=== PATIENT | female | born 2000 | race Caucasian/White ===

== ENCOUNTER 2024-08-24 22:49 | Emergency (ER) | payer OTHER ==
[~2024-08-24] VITALS: Ht 162.6 cm; Wt 115.6 kg
[2024-08-25] MEDS ORDERED: METF-838 (03:14)
[2024-08-25] MEDS ORDERED: VITA100093 (03:14)
[2024-08-25] MEDS ORDERED: FERR325T19 (03:14)
[2024-08-25] MEDS ORDERED: CEPH500T PO (09:54)
[2024-08-25] MEDS: CEPHALEXIN 500 MG CAP PO ONE (09:58)
[2024-08-25 10:06] VITALS: BP 123/71; TEMP 97.9; O2SAT 97
== END 2024-08-25 10:08 | disposition home or self-care (01) ==
LOC: M ED 08-25 02:53
DX: L02.415 Cutaneous abscess of right lower limb (principal); E11.9 Type 2 diabetes mellitus without complications; E55.9 Vitamin D deficiency, unspecified; Z79.2 Long term (current) use of antibiotics; Z79.899 Other long term (current) drug therapy; Z79.84 Long term (current) use of oral hypoglycemic drugs

== ENCOUNTER → 2024-09-04 | Outpatient (CLI) | payer OTHER ==
[~2024-09-04] MED LIST: CEPH500T PO; FERR325T19; METF-838; VITA100093
== END ==
LOC: M LAB 11:00
PROVIDERS: ATTEND General Practice
DX: Z33.1 Pregnant state, incidental (principal)

== ENCOUNTER → 2024-09-06 | Outpatient (CLI) | payer OTHER | LOC: M LAB 14:04 | PROVIDERS: ATTEND General Practice | DX: Z33.1 Pregnant state, incidental (principal) ==

== ENCOUNTER 2024-09-30 12:32 | Emergency (ER) | payer OTHER ==
[~2024-09-30] VITALS: Ht 162.6 cm; Wt 113.6 kg
[2024-09-30 14:41] LABS: BASO # 0.1 10^3/uL (0.0-0.2); BASO % 0.7 % (0.0-1.0); EOS # 0.3 10^3/uL (0.0-0.5); EOS % 2.7 % (0.0-3.0); HEMATOCRIT 37.3 % (36.0-47.0); HEMOGLOBIN 11.9 g/dl (12.0-15.5); LYMPH # 4.1 10^3/uL (1.5-5.0); LYMPH % 32.7 % (24.0-44.0); MEAN CORPUSCULAR HEMOGLOBIN 26.6 pg (27.0-33.0); MEAN CORPUSCULAR HGB CONC 31.9 g/dl (32.0-36.5); MEAN CORPUSCULAR VOLUME 83.4 fl (80.0-96.0); MONO # 0.7 10^3/uL (0.0-0.8); NEUTROPHILS # 7.2 10^3/uL (1.5-8.5); NEUTROPHILS % 57.5 % (36.0-66.0); PLATELET COUNT, AUTOMATED 476 10^3/uL (150-450); RED BLOOD COUNT 4.47 10^6/uL (4.00-5.40); WHITE BLOOD COUNT 12.4 10^3/uL (4.0-10.0)
[2024-09-30 15:04] LABS: BLOOD UREA NITROGEN 9 MG/DL (9-23); CALCIUM LEVEL 9.7 MG/DL (8.5-10.1); CARBON DIOXIDE LEVEL 26 MMOL/L (20-31); CHLORIDE LEVEL 107 MMOL/L (98-107); CREATININE FOR GFR 0.54 MG/DL (0.55-1.30); GLOMERULAR FILTRATION RATE > 60.0 (>60); GLUCOSE, FASTING 88 MG/DL (60-100); HCG, SERUM QUANTITATIVE 73.7 MIU/ML (<4.2); POTASSIUM SERUM 4.4 MMOL/L (3.5-5.1); SODIUM LEVEL 141 MMOL/L (136-145)
[2024-09-30 16:11] VITALS: TEMP 98.1
[2024-09-30 16:30] VITALS: BP 121/79; O2SAT 98
== END 2024-09-30 17:06 | disposition home or self-care (01) ==
LOC: M ED 12:32
DX: O03.1 Delayed or excessive hemorrhage following incomplete spontaneous abortion (principal); E11.9 Type 2 diabetes mellitus without complications; Z79.4 Long term (current) use of insulin; Z79.2 Long term (current) use of antibiotics; Z79.899 Other long term (current) drug therapy